=== PATIENT | male | born 1935 | race Two or more races ===

== ENCOUNTER 2024-04-28 16:54 | Inpatient (IN) | payer MEDICARE, OTHER ==
[~2024-04-28] VITALS: Ht 172.7 cm; Wt 77.1 kg
[2024-04-28 18:07] LABS: MAGNESIUM 2.1 mg/dL (1.8-2.4); PHOSPHORUS 3.5 mg/dL (2.5-4.9)
[2024-04-28 18:11] LABS: ALBUMIN 3.7 g/dL (3.4-5.0); BILIRUBIN,DIRECT 0.1 mg/dL (0.0-0.2); BILIRUBIN,TOTAL 0.3 mg/dL (0.2-1.0); CALCIUM, SERUM 9.5 mg/dL (8.5-10.1); CREATININE 1.7 mg/dL (0.6-1.3); POTASSIUM 4.7 mmol/L (3.5-5.1); TOTAL PROTEIN, SERUM 7.6 g/dL (6.4-8.2)
[2024-04-28 18:16] LABS: BASOPHILS # (AUTO) 0.1 K/uL (0.0-0.2); BASOPHILS % (AUTO) 0.7 % (0.0-2.0); EOSINOPHILS # (AUTO) 0.1 K/uL (0.0-0.7); EOSINOPHILS % (AUTO) 1.1 % (0.0-6.0); HEMATOCRIT 42 % (39-51); HEMOGLOBIN 14.1 g/dL (13.5-17.5); LYMPHOCYTES # (AUTO) 1.5 K/uL (0.8-4.8); LYMPHOCYTES % (AUTO) 15.6 % (20.0-44.0); MEAN CORPUSCULAR HEMOGLOBIN 33 PG (26.0-33.0); MEAN CORPUSCULAR HGB CONC 34 g/dl (31.0-36.0); MEAN CORPUSCULAR VOLUME 99 fL (80-96); MONOCYTES # (AUTO) 0.9 K/uL (0.1-1.30); MONOCYTES % (AUTO) 9.3 % (2.0-12.0); NEUTROPHILS # (AUTO) 6.9 K/uL (1.8-8.9); NEUTROPHILS % (AUTO) 73.3 % (43.0-81.0); PLATELET COUNT (AUTO) 279 K/uL (150-450); RED BLOOD CELL COUNT(AUTO) 4.25 MIL/uL (4.5-6.0); RED CELL DISTRIBUTION WIDTH 14.5 % (11.5-15.0); WHITE BLOOD COUNT (AUTO) 9.5 K/uL (4.3-11.0)
[2024-04-28 18:19] LABS: THYROID STIMULATING HORMONE 2.51 uIU/mL (0.358-3.74)
[2024-04-28 19:25] LABS: APPEARANCE,URINE CLEAR (CLEAR); BILIRUBIN,URINE NEGATIVE (NEGATIVE); BLOOD, URINE NEGATIVE Ery/uL (NEGATIVE); COLOR,URINE YELLOW (YELLOW); KETONES,URINE TRACE mg/dL (NEGATIVE); LEUKOCYTE ESTERASE ,URINE NEGATIVE (NEGATIVE); NITRITE, URINE NEGATIVE (NEGATIVE); PROTEIN,URINE TRACE mg/dl (NEGATIVE); UGLUCOSE NEGATIVE (NEGATIVE); UROBILINOGEN,URINE 0.2 EU/dL (0.2)
[2024-04-28 21:26] LABS: ADD URINE CULTURE NO; BACTERIA,URINE None seen /HPF (None Seen); RBC,URINE 0-2 /HPF (0-2); SQUAMOUS EPITHELIAL CELL,UR 0-2 /HPF (None Seen); WBC,URINE 0-2 /HPF (0-3)
[2024-04-28 22:00] VITALS: BP 145/60; TEMP 96.7; O2SAT 98
[2024-04-29] MEDS ORDERED: ONDANSETRON HCL/PF 4 MG/2 ML VIAL IVP PRN (00:30)
[2024-04-29] MEDS ORDERED: MAG HYDROX/AL HYDROX/SIMETH 30 ML UDC PO PRN (00:30)
[2024-04-29] MEDS ORDERED: ZOLPIDEM TARTRATE 5 MG TABLET PO PRN (00:30)
[2024-04-29] MEDS ORDERED: Z GUARD REMEDY 4 OZ OINT TP PRN (00:30)
[2024-04-29] MEDS ORDERED: ACETAMINOPHEN 325 MG TABLET PO PRN (00:30)
[2024-04-29] MEDS ORDERED: MAGNESIUM HYDROXIDE 30 ML UDC PO PRN (00:30)
[2024-04-29] MEDS: PANTOPRAZOLE 40 MG TABLET.DR PO SCH (07:43)
[2024-04-29 08:00] VITALS: BP 133/65; TEMP 97.7; O2SAT 94
[2024-04-29 11:25] LABS: BASOPHILS # (AUTO) 0.1 K/uL (0.0-0.2); BASOPHILS % (AUTO) 0.8 % (0.0-2.0); EOSINOPHILS # (AUTO) 0.1 K/uL (0.0-0.7); EOSINOPHILS % (AUTO) 1.4 % (0.0-6.0); HEMATOCRIT 42 % (39-51); HEMOGLOBIN 13.8 g/dL (13.5-17.5); LYMPHOCYTES % (AUTO) 23.5 % (20.0-44.0); MEAN CORPUSCULAR HEMOGLOBIN 32 PG (26.0-33.0); MEAN CORPUSCULAR HGB CONC 33 g/dl (31.0-36.0); MEAN CORPUSCULAR VOLUME 99 fL (80-96); MONOCYTES # (AUTO) 0.9 K/uL (0.1-1.30); MONOCYTES % (AUTO) 11.2 % (2.0-12.0); NEUTROPHILS # (AUTO) 5.3 K/uL (1.8-8.9); NEUTROPHILS % (AUTO) 63.1 % (43.0-81.0); PLATELET COUNT (AUTO) 269 K/uL (150-450); RED BLOOD CELL COUNT(AUTO) 4.27 MIL/uL (4.5-6.0); RED CELL DISTRIBUTION WIDTH 14.2 % (11.5-15.0); WHITE BLOOD COUNT (AUTO) 8.4 K/uL (4.3-11.0)
[2024-04-29 11:54] LABS: CALCIUM, SERUM 9.3 mg/dL (8.5-10.1); CREATININE 1.5 mg/dL (0.6-1.3); POTASSIUM 4.2 mmol/L (3.5-5.1)
[2024-04-29] MEDS: IV NS 0.9% 1,000 ML IV SCH (12:02)
[2024-04-29 16:00] VITALS: BP 154/83; TEMP 98.2; O2SAT 95
[2024-04-29] MEDS ORDERED: METF-440 PO (18:50)
[2024-04-29] MEDS ORDERED: ATOR10TA PO (18:50)
[2024-04-29] MEDS ORDERED: AMLO-212 PO (18:50)
[2024-04-29] MEDS ORDERED: DOCU100C36 PO (18:50)
[2024-04-29] MEDS ORDERED: ACET325T53 PO (18:50)
[2024-04-29] MEDS ORDERED: ATEN25TA PO (18:50)
[2024-04-29] MEDS ORDERED: LIDO700A30 TP (18:50)
[2024-04-29] MEDS ORDERED: QUET25TA PO (18:50)
[2024-04-29] MEDS ORDERED: PARO10TA4 PO (18:50)
[2024-04-29] MEDS ORDERED: MIRT7.5T10 PO (18:50)
[2024-04-29 20:00] VITALS: BP 115/73; TEMP 98.2; O2SAT 92
[2024-04-30 08:29] LABS: ALBUMIN 3.2 g/dL (3.4-5.0); BILIRUBIN,TOTAL 0.5 mg/dL (0.2-1.0); CALCIUM, SERUM 8.9 mg/dL (8.5-10.1); CREATININE 1.7 mg/dL (0.6-1.3); MAGNESIUM 2.3 mg/dL (1.8-2.4); PHOSPHORUS 3.1 mg/dL (2.5-4.9); POTASSIUM 5.6 mmol/L (3.5-5.1); TOTAL PROTEIN, SERUM 6.7 g/dL (6.4-8.2)
[2024-04-30 08:44] LABS: BASOPHILS # (AUTO) 0.1 K/uL (0.0-0.2); EOSINOPHILS # (AUTO) 0.3 K/uL (0.0-0.7); EOSINOPHILS % (AUTO) 3.3 % (0.0-6.0); HEMATOCRIT 40 % (39-51); HEMOGLOBIN 13.1 g/dL (13.5-17.5); LYMPHOCYTES # (AUTO) 1.5 K/uL (0.8-4.8); LYMPHOCYTES % (AUTO) 19.5 % (20.0-44.0); MEAN CORPUSCULAR HEMOGLOBIN 33 PG (26.0-33.0); MEAN CORPUSCULAR HGB CONC 33 g/dl (31.0-36.0); MEAN CORPUSCULAR VOLUME 99 fL (80-96); MONOCYTES # (AUTO) 0.9 K/uL (0.1-1.30); NEUTROPHILS % (AUTO) 64.2 % (43.0-81.0); PLATELET COUNT (AUTO) 245 K/uL (150-450); RED BLOOD CELL COUNT(AUTO) 4.02 MIL/uL (4.5-6.0); RED CELL DISTRIBUTION WIDTH 14.1 % (11.5-15.0); WHITE BLOOD COUNT (AUTO) 7.8 K/uL (4.3-11.0)
[2024-04-30 09:06] LABS: THYROID STIMULATING HORMONE 1.69 uIU/mL (0.358-3.74)
[2024-04-30] MEDS: SODIUM ZIRCONIUM CYCLOSILICATE 10 GM POWD.PACK PO ONE (10:43)
[2024-04-30] MEDS ORDERED: METF-440 PO (12:05)
[2024-04-30] MEDS ORDERED: MIRT7.5T10 PO (12:05)
[2024-04-30] MEDS ORDERED: ATOR10TA PO (12:05)
[2024-04-30] MEDS ORDERED: AMLO-212 PO (12:05)
[2024-04-30] MEDS ORDERED: DOCU100C36 PO (12:05)
[2024-04-30] MEDS ORDERED: QUET25TA PO (12:05)
[2024-04-30] MEDS ORDERED: LIDO700A30 TP (12:05)
[2024-04-30] MEDS ORDERED: PARO10TA4 PO (12:05)
[2024-04-30] MEDS ORDERED: ATEN25TA PO (12:05)
[2024-04-30] MEDS ORDERED: ACET325T53 PO (12:05)
[2024-04-30 20:00] VITALS: BP 147/88; TEMP 98.1; O2SAT 97
[2024-05-01 06:07] LABS: PTH, INTACT 43 pg/mL (15-65)
[2024-05-01 06:58] LABS: BASOPHILS # (AUTO) 0.1 K/uL (0.0-0.2); BASOPHILS % (AUTO) 1.3 % (0.0-2.0); EOSINOPHILS # (AUTO) 0.3 K/uL (0.0-0.7); EOSINOPHILS % (AUTO) 4.5 % (0.0-6.0); HEMATOCRIT 41 % (39-51); HEMOGLOBIN 13.6 g/dL (13.5-17.5); LYMPHOCYTES # (AUTO) 1.7 K/uL (0.8-4.8); LYMPHOCYTES % (AUTO) 21.8 % (20.0-44.0); MEAN CORPUSCULAR HEMOGLOBIN 33 PG (26.0-33.0); MEAN CORPUSCULAR HGB CONC 33 g/dl (31.0-36.0); MEAN CORPUSCULAR VOLUME 99 fL (80-96); MONOCYTES # (AUTO) 0.8 K/uL (0.1-1.30); NEUTROPHILS # (AUTO) 4.7 K/uL (1.8-8.9); NEUTROPHILS % (AUTO) 61.4 % (43.0-81.0); PLATELET COUNT (AUTO) 245 K/uL (150-450); RED BLOOD CELL COUNT(AUTO) 4.14 MIL/uL (4.5-6.0); RED CELL DISTRIBUTION WIDTH 14.3 % (11.5-15.0); WHITE BLOOD COUNT (AUTO) 7.7 K/uL (4.3-11.0)
[2024-05-01 08:00] VITALS: BP 162/89; TEMP 98.2; O2SAT 96
[2024-05-01 08:10] LABS: CALCIUM, SERUM 8.8 mg/dL (8.5-10.1); CREATININE 1.4 mg/dL (0.6-1.3); POTASSIUM 4.1 mmol/L (3.5-5.1)
[2024-05-01] MEDS ORDERED: ACETAMINOPHEN 325 MG TABLET PO SCH (11:00)
[2024-05-01] MEDS: AMLODIPINE BESYLATE 5 MG TABLET PO SCH (11:05)
[2024-05-01 12:35] VITALS: BP 162/89
[2024-05-01] MEDS: ATENOLOL 25 MG TABLET PO SCH (12:35)
[2024-05-01 13:15] LABS: THYROID STIMULATING HORMONE 1.91 uIU/mL (0.358-3.74)
[2024-05-01] MEDS ORDERED: METFORMIN 500 MG TABLET PO SCH (17:00)
[2024-05-01] MEDS ORDERED: DOCUSATE SODIUM 100 MG CAPSULE PO SCH (17:00)
[2024-05-01] MEDS ORDERED: QUETIAPINE FUMARATE 25 MG TABLET PO SCH (22:00)
[2024-05-01] MEDS ORDERED: PAROXETINE HCL 10 MG TABLET PO SCH (22:00)
[2024-05-01] MEDS ORDERED: ATORVASTATIN 10 MG TABLET PO SCH (22:00)
[2024-05-01] MEDS ORDERED: MIRTAZAPINE 15 MG TABLET PO SCH (22:00)
[2024-05-02] MEDS ORDERED: LIDOCAINE 5% (PATCH) 1 EA PATCH TP SCH (09:00)
[2024-05-02 09:08] LABS: *SPE ALBUMIN 3.1 g/dL (2.9-4.4); *SPE ALPHA-1-GLOBULIN 0.3 g/dL (0.0-0.4); *SPE ALPHA-2-GLOBULIN 0.8 g/dL (0.4-1.0); *SPE BETA GLOBULIN 0.9 g/dL (0.7-1.3); *SPE M-SPIKE 0.4 g/dL (Not Observed); *SPE PROTEIN TOTAL 6.1 g/dL (6.0-8.5)
== END 2024-05-01 17:37 | DRG 640 ==
LOC: ER 17:03 → MED 21:12
PROVIDERS: ADMIT Nurse Practitioner Family; ATTEND Nurse Practitioner Acute Care
DX: E86.0 Dehydration (principal); N17.0 Acute kidney failure with tubular necrosis; F02.83 Dementia in other diseases classified elsewhere, unspecified severity, with mood disturbance; R62.7 Adult failure to thrive; I25.10 Atherosclerotic heart disease of native coronary artery without angina pectoris; E78.5 Hyperlipidemia, unspecified; F32.A Depression, unspecified; G30.9 Alzheimer's disease, unspecified; N18.9 Chronic kidney disease, unspecified; I12.9 Hypertensive chronic kidney disease with stage 1 through stage 4 chronic kidney disease, or unspecified chronic kidney disease; Z90.5 Acquired absence of kidney; R26.81 Unsteadiness on feet; Z68.25 Body mass index [BMI] 25.0-25.9, adult; N28.1 Cyst of kidney, acquired; E87.5 Hyperkalemia; E11.22 Type 2 diabetes mellitus with diabetic chronic kidney disease
CPT/HCPCS: 36415; 71045-TC; 76770-TC; 80048-TC; 80053-TC; 80061-TC; 80076-TC; 81001; 82550-TC; 82553; 82607-TC; 82962-TC; 83735-TC; 83921; 83970; 84100-TC; 84155; 84165; 84425; 84443-TC; 85025-TC; 87081-TC; 97110-TC; 97116-TC; 97530-TC; A4223; G0378; J7030